=== PATIENT | male | born 2000 | race Caucasian/White ===

== ENCOUNTER 2024-08-18 20:47 | Emergency (ER) | payer OTHER ==
[~2024-08-18] VITALS: Ht 177.8 cm; Wt 74.8 kg
[2024-08-18 22:00] VITALS: BP 162/86; TEMP 97.7; O2SAT 98
[2024-08-18] MEDS ORDERED: LIDOCAINE 1%-EPI 1:100,000 20 ML VIAL ONE (22:11)
[2024-08-18] MEDS ORDERED: IBUP-1490 PO (22:26)
[2024-08-18] MEDS ORDERED: AMOX-430 PO (22:26)
[2024-08-18] MEDS ORDERED: IBUPROFEN 600 MG TABLET ONE (22:28)
[2024-08-18] MEDS ORDERED: TDAP [DIPH/PERTUSSIS/TET] 0.5 ML VIAL IM ONE (22:28)
[2024-08-18] MEDS ORDERED: AMOX/CLAVULANATE 875 MG TABLET ONE (22:28)
[2024-08-18] MEDS: LIDOCAINE 2%-EPI 1:100,000 30 ML VIAL TP ONE (22:40)
[2024-08-18] MEDS: AMOX/CLAVULANATE 875 MG TABLET PO ONE (22:40)
[2024-08-18] MEDS: TDAP [DIPH/PERTUSSIS/TET] 0.5 ML VIAL IM ONE (22:40)
[2024-08-18] MEDS: IBUPROFEN 600 MG TABLET PO ONE (22:40)
== END 2024-08-18 22:42 | disposition home or self-care (01) ==
LOC: ER 21:03
DX: L02.413 Cutaneous abscess of right upper limb (principal); I10 Essential (primary) hypertension
CPT/HCPCS: 99283; 10060; 90471; 90715; J3490